=== PATIENT | male | born 2000 | race Caucasian/White ===

== ENCOUNTER 2021-12-01 16:47 | Emergency (ER) | payer MEDICAID ==
[~2021-12-01] VITALS: Ht 170.2 cm; Wt 76.9 kg
[2021-12-01 17:01] VITALS: BP 120/70
[2021-12-01] MEDS ORDERED: DIPHENHYDRAMINE 50MG CAPSULE PO ONE (17:30)
[2021-12-01] MEDS ORDERED: PREDNISONE 20MG TABLET PO ONE (17:30)
[2021-12-01] MEDS ORDERED: P50 MT (17:57)
[2021-12-01] MEDS ORDERED: DIPH25CA83 PO (17:57)
== END 2021-12-01 18:31 | disposition home or self-care (01) ==
LOC: ER 16:47
DX: R21 Rash and other nonspecific skin eruption (principal); R03.0 Elevated blood-pressure reading, without diagnosis of hypertension
CPT/HCPCS: 99283; J7512; Q0163